=== PATIENT | female | born 1990 | race Caucasian/White ===

== ENCOUNTER 2016-10-06 18:25 | Emergency (ER) | payer SELFPAY ==
[~2016-10-06] VITALS: Ht 157.5 cm; Wt 55.0 kg
[2016-10-06 18:29] VITALS: BP 134/69; PULSE 84; RESP 16; TEMP 98.5; O2SAT 100
--- NOTE | 2016-10-06 18:42 | PD ---
Physical Exam Narrative 26yo F swelling of her actual vagina started today. Started menses last night. Denies abnormal vag dc, odor. Has not used any new period pads. Denies abd pain, fevers, vomiting. Patient seen in triage. VS reviewed. Awaiting bed placement. Data Data Last Documented VS Vital Signs Date Time Temp Pulse Resp B/P (MAP) Pulse Ox O2 Delivery O2 Flow Rate FiO2 10/06/16 18:29 98.5 84 16 134/69 (90) 100 Room Air [facility] Supervised Visit with MOE: Delphine Mcmullen Oct 06, 2016 18:42
--- NOTE | 2016-10-06 22:56 | PD ---
HPI Chief Complaint: Manager Insurance Problem/Complaint Time Seen by Provider: 22:45 Travel History International Travel<30 days: No Contact w/Intl Traveler<30days: No Traveled to known affect area: No History of Present Illness HPI This patient was examined in the presence of female nurse. 26-year-old female presents for evaluation of vaginal discharge, vaginal pain. She reports that she started her menstrual period yesterday and has felt normal with normal cramps. Today she developed white/brown vaginal discharge and the sensation that her vagina feels swollen and painful. She's never had this problem before. Aggravated by palpation. No relieving factors. Denies any forceful intercourse or use of any sexual objects. Denies any new sexual partners. She is sexually active only with her . Denies dysuria, flank pain, increased urinary frequency or hesitancy, nausea or vomiting, fevers or chills. Denies recent antibiotic use. Endorses little bit of itching as well. No other complaints. PFSH Past Medical History Medical History: Denies Significant Hx Diminished Hearing: No Influenza Vaccination: No ?: Not LMP: 10/06/16 Menopausal: No : 2 Miscarriage: 1 : 1 Past Surgical History Surgical History: No Previous Surgery Social History Alcohol Use: Yes (occasionally) Tobacco Use: Yes (occasionally) Substance Use: Yes (marijuana) Allergies-Medications (Allergen,Severity, Reaction): Coded Allergies: No Known Allergies (Unverified , 10/06/16) Reported Meds & Prescriptions Reported Meds & Active Scripts Active No Active Prescriptions or Reported Medications Review of Systems Except as stated in HPI: all other systems reviewed are Neg Physical Exam Narrative GENERAL: Well-nourished female in no acute distress SKIN: Warm and dry. HEAD: Atraumatic. Normocephalic. EYES: Pupils equal and round. No scleral icterus. No injection or drainage. CARDIOVASCULAR: Regular rate and rhythm. No murmur appreciated. RESPIRATORY: No accessory muscle use. Clear to auscultation. Breath sounds equal bilaterally. GASTROINTESTINAL: Abdomen soft, non-tender, nondistended. Hepatic and splenic margins not palpable. Pelvic examination performed in the presence of female nurse: There is some vaginal bleeding consistent with her history of menstruation. There is some white vaginal discharge. The galdamez of the vagina are painful with manipulation. No palpable abscess. There is no cervical motion tenderness or adnexal tenderness. There was a 1 cm X 3-4MM rectangular thin piece of plastic of unknown etiology that was removed during bimanual examination. MUSCULOSKELETAL: No obvious deformities. No clubbing. No cyanosis. No edema. NEUROLOGICAL: Awake and alert. No obvious cranial nerve deficits. Motor grossly within normal limits. Normal speech. PSYCHIATRIC: Appropriate mood and affect; insight and judgment normal. Data Data Last Documented VS Vital Signs Date Time Temp Pulse Resp B/P (MAP) Pulse Ox O2 Delivery O2 Flow Rate FiO2 10/06/16 18:29 98.5 84 16 134/69 (90) 100 Room Air Orders Orders Gc And Chlamydia Pcr (10/06/16 22:52) Wet Prep Profile (10/06/16 22:52) Ed Urine Pregnancytest Poc (10/06/16 22:52) Ketorolac Inj (Toradol Inj) (10/06/16 23:30) Metronidazole (Flagyl) (10/07/16 00:15) Fluconazole (Diflucan) (10/07/16 00:15) Labs Laboratory Tests Test 10/06/16 23:25 Clue Cells (Wet Prep) NONE SEEN Vaginal Trichomonas (Wet Prep) NONE SEEN Vaginal Yeast (Wet Prep) NONE SEEN MDM Medical Decision Making Medical Screen Exam Complete: Yes Emergency Medical Condition: Yes Medical Record Reviewed: Yes Differential Diagnosis Vaginosis, vaginitis, cervicitis, abscess, foreign body, PID Narrative Course 26-year-old female who started her menstruation yesterday presents with one-day history of vaginal pain, white vaginal discharge and itching. Examination reveals generalized inflammation of the vaginal galdamez, some white vaginal discharge and vaginal bleeding. There was a 3 mm x 1 cm thin piece of plastic that was removed during bimanual examination, unknown etiology. No other obvious foreign body. No evidence of pelvic inflammatory disease. The patient will be given a dose of Toradol. Wet prep, Chlamydia/gonorrhea probe are pending. The wet prep is negative however her symptoms are certainly consistent with vaginitis, bacterial versus fungal. Therefore the patient will be treated with 2 g of Flagyl and 150 mg fluconazole. The chlamydia and gonorrhea probe are currently pending however I doubt that these will be positive and she has no evidence of cervicitis or PID on examination she feels improved after Toradol. She is stable for discharge. Diagnosis Primary Impression: Vaginitis Qualified Codes: N76.0 - Acute vaginitis Additional Impression: Hx of retained foreign body fully removed Additional Instructions: Take Tylenol or Motrin for discomfort. Rest. Follow-up with primary care physician as needed and return for any acutely new or worsening symptoms. Med/Other Pt SpecificInfo: No Change to Meds Scripts No Active Prescriptions or Reported Meds Disposition: 01 DISCHARGE HOME Condition: Stable Damien Wise Oct 06, 2016 22:56
[2016-10-06] MEDS ORDERED: KETOROLAC TROMETHAMINE 60 MG/2 ML (IM) VIAL IM ONE (23:30)
[2016-10-07] MEDS ORDERED: metroNIDAZOLE 500 MG TAB PO ONE (00:15)
[2016-10-07] MEDS ORDERED: FLUCONAZOLE 100 MG TAB PO ONE (00:15)
[2016-10-07 04:53] LABS: CHLAMYDIA PCR NOT DETECTED (NOT DETECT); NEISSERIA PCR NOT DETECTED (NOT DETECT)
== END 2016-10-07 00:39 | disposition home or self-care (01) ==
LOC: NEPD 18:25
DX: N76.0 Acute vaginitis (principal); Z72.0 Tobacco use
CPT/HCPCS: 84703; 87210; 87491; 87591; 96372; 99284; J1885